=== PATIENT | female | born 1990 | race Two or more races ===

== ENCOUNTER → 2017-06-24 | Emergency (ER) | payer OTHER, MEDICAID ==
[~2017-06-24] MED LIST: IV NORMAL SALINE 1,000ML 1,000 ML IV ONE; NITR100C62 PO; POTASSIUM CHLORIDE 20 MEQ TABLET.ER. PO ONE
[2017-06-24 03:58] VITALS: BP 123/70
--- NOTE | 2017-06-24 04:09 | PHYS DOC ---
Past History Past Medical History: Asthma, Other Past Surgical History: Other Drug Use: Amphetamine, Cocaine Adult General Chief Complaint Chief Complaint: LOWER EXTREMITY [facility] HPI Patient is a 27 year old female who presents with multiple complaints. She states over the last 2 weeks she's been noticing weight gain, lightheadedness dizziness. She states is very similar to when she was before and was diagnosed with preeclampsia partially to weeks before she delivered. She states her symptoms started immediately upon and wasn' t fully diagnosed until she was term. She states she just came back from [place] where she did meth and other drugs. She states she usually doesn't do drugs unless she's "out partying". She denies any chest pain abdominal pain, vaginal bleeding. She states she just finished her period 5 days ago and is only 3 days in length. She states normally it is about 5 days or longer in length. She decided to come the emergency department because she had some cramps prior to arrival however she's not have any now. She denies any vaginal bleeding or discharge. Review of Systems Review of Systems Constitutional: Denies fever or chills [] Eyes: Denies change in visual acuity, redness, or eye pain [] HENT: Denies nasal congestion or sore throat [] Respiratory: Denies cough or shortness of breath [] Cardiovascular: No additional information not addressed in HPI [] GI: Denies abdominal pain, nausea, vomiting, bloody stools or diarrhea [] : Denies dysuria or hematuria [] Musculoskeletal: Denies back pain or joint pain [] Integument: Denies rash or skin lesions [] Neurologic: Denies headache, focal weakness or sensory changes [] Endocrine: Denies polyuria or polydipsia [] Physical Exam Physical Exam Constitutional: Well developed, well nourished, no acute distress, non-toxic appearance. [] HENT: Normocephalic, atraumatic, bilateral external ears normal, oropharynx moist, no oral exudates, nose normal. [] Eyes: PERRLA, EOMI, conjunctiva normal, no discharge. [] Neck: Normal range of motion, no tenderness, supple, no stridor. [] Cardiovascular:Heart rate regular rhythm, no murmur [] Lungs & Thorax: Bilateral breath sounds clear to auscultation [] Abdomen: Bowel sounds normal, soft, no tenderness, no masses, no pulsatile masses. [] Skin: Warm, dry, no erythema, no rash. [] Back: No tenderness, no CVA tenderness. [] Extremities: No tenderness, no cyanosis, no clubbing, ROM intact, no edema. [] Neurologic: Alert and oriented X 3, normal motor function, normal sensory function, no focal deficits noted. [] Psychologic: Affect normal, judgement normal, mood normal. [] Current Patient Data Vital Signs Vital Signs Date Time Temp Pulse Resp B/P (MAP) Pulse Ox O2 Delivery O2 Flow Rate FiO2 06/24/17 03:58 98.2 107 16 100 Room Air EKG EKG EKG shows sinus rhythm rate [address] elevations or T-wave inversions, normal axis, QTC 425 ms, as interpreted by me. Radiology/Procedures Radiology/Procedures [] Impressions: Hypokalemia Dehydration Bacteria in Meth amphetamine abuse Cocaine abuse Marijuana abuse Course & Med Decision Making Course & Med Decision Making Pertinent Labs and Imaging studies reviewed. (See chart for details) Patient presented with mild tachycardia she did have any tachypnea or hypoxemia. She did not have any vaginal bleeding or abdominal pain. She was ambulated around the department her heart rate did increase to 110 but her oxygen level stated 100% she was not tachypneic. She was found to be dehydrated and she was given a liter fluids her heart rate went down into the 80s. She also received 40 mg potassium chloride 1. She has bacteriuria and will be treated with nitrofurantoin for the next 7 days. She is to follow-up with Dr. Escalante within next few days. She is instructed to call his office today. She is also instructed to stop using methamphetamines, marijuana, cocaine and smoking. Patient was discharged in stable condition with her dad. Dragon Disclaimer Dragon Disclaimer This chart was dictated in whole or in part using Voice Recognition software in a busy, high-work load, and often noisy Emergency Department environment. It may contain unintended and wholly unrecognized errors or omissions. Departure Departure: Impression: Primary Impression: Dehydration Additional Impression: Disposition: HOME, SELF-CARE Condition: STABLE Referrals: PCP,NO (PCP) Patient Instructions: ABCs of Additional Instructions: You are and your potassium level was slightly low and your dehydrated. Her potassium and dehydration was corrected in the emergency department. You are being discharged home and to follow-up with [facility]. You're need to stop using cocaine and methamphetamines and any other illicit substance. Also please don't smoke during her . Your being discharged home with antibiotics for the next 10 days. Please take them as instructed. You will need to follow-up with Dr. Escalante. Please call [phone] Escalante 's office. Return ER if you have severe pain, vaginal bleeding, cramps or you have any other concerns. Scripts Nitrofurantoin Monohyd/M-Cryst (MACROBID 100 MG CAPSULE) 100 Mg Capsule 1 CAP PO BID, #14 CAP Prov: YONNY MUÑOZ MD 06/24/17 Problem Qualifiers Additional Impression: Weeks of gestation: unspecified Qualified Codes: Z34.90 - Encounter for supervision of normal , unspecified, unspecified trimester YONNY MUÑOZ MD Jun 24, 2017 04:08
[2017-06-24 04:34] LABS: BASO % 0 % (0-3); EOS # 0.3 x10^3/uL (0.0-0.7); EOS % 3 % (0-3); HEMATOCRIT 38.6 % (36.0-47.0); HEMOGLOBIN 13.4 g/dL (12.0-15.5); LYMPH # 2.7 x10^3/uL (1.0-4.8); LYMPH % 35 % (24-48); MEAN CORPUSCULAR HEMOGLOBIN 31 pg (25-35); MEAN CORPUSCULAR HGB CONC 35 g/dL (31-37); MEAN CORPUSCULAR VOLUME 90 fL (79-100); MONO # 0.6 x10^3/uL (0.0-1.1); MONO % 8 % (0-9); NEUT # 4.2 x10^3uL (1.8-7.7); NEUT % 54 % (31-73); PLATELET COUNT 241 x10^3/uL (140-400); RED BLOOD COUNT 4.27 x10^6/uL (3.50-5.40); RED CELL DISTRIBUTION WIDTH 13.9 % (11.5-14.5); WHITE BLOOD COUNT 7.8 x10^3/uL (4.0-11.0)
[2017-06-24 04:40] LABS: PREG TEST PT QUAL POSITIVE (NEG)
[2017-06-24 04:41] LABS: BILIRUBIN,URINE NEG (NEG); CLARITY,URINE HAZY; COLOR,URINE YELLOW; GLUCOSE,URINE NEG (NEG)
[2017-06-24 04:42] LABS: BACTERIA,URINE MOD /HPF (0-FEW); BARBITURATES NEG (NEG); BENZODIAZEPINES NEG (NEG); CANNABINOIDS POS (NEG); COCAINE POS (NEG); METHADONE NEG (NEG); NITRITE,URINE NEG (NEG); OPIATES NEG (NEG); PHENCYCLIDINE NEG (NEG); RBC,URINE 0 /HPF (0-2); SQUAMOUS EPITHELIAL CELL,UR MANY /LPF; UROBILINOGEN,URINE 0.2 mg/dL (0.2 mg/dL)
[2017-06-24 04:45] LABS: AMPHETAMINE/METHAMPHETAMINE POS (NEG)
[2017-06-24 04:50] LABS: ALBUMIN 3.6 g/dL (3.4-5.0); CALCIUM 8.8 mg/dL (8.5-10.1); CREATININE 0.7 mg/dL (0.6-1.0); DIRECT BILIRUBIN 0.1 mg/dL (0.0-0.2); POTASSIUM 3.3 mmol/L (3.5-5.1); TOTAL BILIRUBIN 0.3 mg/dL (0.2-1.0); TOTAL PROTEIN 7.1 g/dL (6.4-8.2)
--- NOTE | 2017-06-24 18:59 | EKG ---
[address] [address] Test Date: 2017-06-24 Test Time: 04:41:59 Pat Name: FRITZ ZAMORA Department: Room: Gender: F Regulatory Assistant: HORTENCIA : 1990 Requested By: YONNY MUÑOZ Order Number: [id number] Reading MD: Measurements Intervals [place] Rate: 96 P: 62 AK: 156 QRS: 69 QRSD: 86 T: 53 QT: 336 QTc: 425 Interpretive Statements SINUS RHYTHM INCOMPLETE RIGHT BUNDLE BRANCH BLOCK QRS(T) CONTOUR ABNORMALITY CONSIDER ANTEROSEPTAL MYOCARDIAL DAMAGE POSSIBLY ABNORMAL ECG RI6.01 No previous ECG available for comparison
== END ==
LOC: ER 03:48
DX: E86.0 Dehydration (principal); Z33.1 Pregnant state, incidental; E87.6 Hypokalemia; F14.10 Cocaine abuse, uncomplicated; F15.10 Other stimulant abuse, uncomplicated; J45.909 Unspecified asthma, uncomplicated; F12.10 Cannabis abuse, uncomplicated
CPT/HCPCS: 36415; 80048; 80076; 80307; 81001; 81025; 82553; 83880; 84703; 85025; 85610; 85730; 87086; 93005; 96360; 99285-25; G0479; J7030

== ENCOUNTER 2019-09-17 19:54 | Emergency (ER) | payer MEDICAID, OTHER ==
[~2019-09-17] VITALS: Ht 167.6 cm; Wt 81.1 kg
[~2019-09-17 19:54] MED LIST changes: -IV NORMAL SALINE 1,000ML 1,000 ML IV ONE; -POTASSIUM CHLORIDE 20 MEQ TABLET.ER. PO ONE
[2019-09-17 21:10] LABS: INFLUENZA A PATIENT NEGATIVE (NEGATIVE); INFLUENZA B PATIENT NEGATIVE (NEGATIVE)
--- NOTE | 2019-09-17 21:17 | PHYS DOC ---
Past History Past Medical History: Asthma, Other Past Surgical History: Other Alcohol Use: Rarely Drug Use: Amphetamine, Cocaine Adult General Chief Complaint Chief Complaint: FLU SYMPTOM HPI HPI 29-year-old female presents with cough, sore throat, fever. She's had fever up to 102. 2 people in her family have had influenza. She was treated with Tamiflu which she finished yesterday. Patient continues to have a fever today and her sore throat is worse. She is concerned about strep. She has no other complaints at this time. Review of Systems Review of Systems Constitutional: Fever[] Eyes: Denies change in visual acuity, redness, or eye pain [] HENT: Sore throat [] Respiratory: Cough without shortness of breath [] Cardiovascular: No additional information not addressed in HPI [] GI: Denies abdominal pain, nausea, vomiting, bloody stools or diarrhea [] : Denies dysuria or hematuria [] Musculoskeletal: Denies back pain or joint pain [] Integument: Denies rash or skin lesions [] Neurologic: Denies headache, focal weakness or sensory changes [] Endocrine: Denies polyuria or polydipsia [] All other systems were reviewed and found to be within normal limits, except as documented in this note. Allergies Allergies Allergies Coded Allergies Type Severity Reaction Last Updated Verified No Known Drug Allergies 06/24/17 No Physical Exam Physical Exam Constitutional: Well developed, well nourished, no acute distress, non-toxic appearance. [] HENT: Normocephalic, atraumatic, bilateral external ears normal, oropharynx erythematous with tonsillar exudates, nose normal. [] Eyes: PERRLA, EOMI, conjunctiva normal, no discharge. [] Neck: Normal range of motion, no tenderness, supple, no stridor. [] Cardiovascular:Heart rate regular rhythm, no murmur [] Lungs & Thorax: Bilateral breath sounds clear to auscultation [] Abdomen: Bowel sounds normal, soft, no tenderness, no masses, no pulsatile masses. [] Skin: Warm, dry, no erythema, no rash. [] Back: No tenderness, no CVA tenderness. [] Extremities: No tenderness, no cyanosis, no clubbing, ROM intact, no edema. [] Neurologic: Alert and oriented X 3, normal motor function, normal sensory function, no focal deficits noted. [] Psychologic: Affect normal, judgement normal, mood normal. [] Current Patient Data Vital Signs Vital Signs Date Time Temp Pulse Resp B/P (MAP) Pulse Ox O2 Delivery O2 Flow Rate FiO2 09/17/19 20:05 97.9 110 18 98 Room Air Lab Results Laboratory Tests Test 09/17/19 20:21 Influenza Type A (Rapid) Negative (NEGATIVE) Influenza Type B (Rapid) Negative (NEGATIVE) Group A Streptococcus Rapid Negative (NEGATIVE) EKG EKG [] Radiology/Procedures Radiology/Procedures [] Course & Med Decision Making Course & Med Decision Making Pertinent Labs and Imaging studies reviewed. (See chart for details) She is negative for influenza and strep. Based on her exam I'm still concerned for strep. I will go ahead and treat her for strep pharyngitis. She has elected for Bicillin injection. She is stable for discharge at this time. [] Dragon Disclaimer Dragon Disclaimer This electronic medical record was generated, in whole or in part, using a voice recognition dictation system. Departure Departure: Impression: Primary Impression: Strep pharyngitis Disposition: 01 HOME, SELF-CARE Condition: STABLE Referrals: PCP,NO (PCP) Patient Instructions: Strep Throat, [id number] EDGAR VALDEZ DO Sep 17, 2019 21:16
[2019-09-17] MEDS ORDERED: PENICILLIN G BENZATHINE LA 1,200,000 UNIT/2 ML DISP.SYRIN. IM ONE (21:30)
[2019-09-17 21:40] VITALS: BP 132/67
== END 2019-09-17 21:40 | disposition home or self-care (01) ==
LOC: ER 19:54
DX: J02.0 Streptococcal pharyngitis (principal); B95.0 Streptococcus, group A, as the cause of diseases classified elsewhere; J45.909 Unspecified asthma, uncomplicated
CPT/HCPCS: 87070; 87804; 87880; 96372; 99284; J0561

== ENCOUNTER 2020-02-22 17:09 | Emergency (ER) | payer BC ==
[~2020-02-22] VITALS: Ht 162.6 cm; Wt 82.6 kg
[2020-02-22] MEDS ORDERED: KETOROLAC 30 MG/ML VIAL. IV ONE (17:30)
[2020-02-22] MEDS ORDERED: ONDANSETRON PF 4 MG/2 ML VIAL. IV ONE (17:30)
[2020-02-22] MEDS ORDERED: IV NORMAL SALINE 1,000ML 1,000 ML IV ONE (17:30)
[2020-02-22 17:38] LABS: BILIRUBIN,URINE NEG (NEG); CLARITY,URINE CLOUDY; COLOR,URINE YELLOW; GLUCOSE,URINE NEG (NEG)
[2020-02-22 17:39] LABS: NITRITE,URINE NEG (NEG); UROBILINOGEN,URINE 0.2 mg/dL (0.2 mg/dL)
[2020-02-22 17:46] LABS: AMORPHOUS SEDIMENT,UR PRESENT /HPF; BACTERIA,URINE MOD /HPF (0-FEW); SQUAMOUS EPITHELIAL CELL,UR MOD /LPF
[2020-02-22 17:47] LABS: WBC,URINE >40 /HPF (0-4)
[2020-02-22] MEDS ORDERED: cefTRIAXone SODIUM 1 GM VIAL ONE (17:50)
[2020-02-22] MEDS ORDERED: IV NORMAL SALINE 50ML 50 ML ONE (17:50)
[2020-02-22] MEDS ORDERED: PHEN-318 PO (17:50)
[2020-02-22] MEDS ORDERED: SULF1TAB24 PO (17:50)
--- NOTE | 2020-02-22 17:50 | PHYS DOC ---
Past History Past Medical History: UTI Past Surgical History: Tonsillectomy Alcohol Use: Rarely Drug Use: Amphetamine, Cocaine General Adult EDM: Chief Complaint: FLANK PAIN HPI: HPI: Patient is a 29-year-old otherwise healthy female who presents with a 3-day history of lower abdominal discomfort and low back pain. She describes urinary frequency and urgency. She denies any gross hematuria. She denies any flank pain nausea or vomiting. She denies any dyspareunia vaginal bleeding or discharge. She has not had any high fever or sweats. [] Review of Systems: Review of Systems: Constitutional: Denies fever or chills Eyes: Denies change in visual acuity HENT: Denies nasal congestion or sore throat Respiratory: Denies cough or shortness of breath Cardiovascular: Denies chest pain or edema GI: Denies abdominal pain, nausea, vomiting, bloody stools or diarrhea : Per HPI Musculoskeletal: Denies back pain or joint pain Integument: Denies rash Neurologic: Denies headache, focal weakness or sensory changes Endocrine: Denies polyuria or polydipsia Lymphatic: Denies swollen glands Psychiatric: Denies depression or anxiety Heart Score: Risk Factors: Risk Factors: DM, Current or recent (<one month) smoker, HTN, HLP, family history of CAD, obesity. Risk Scores: Score 0 - 3: 2.5% MACE over next 6 weeks - Discharge Home Score 4 - 6: 20.3% MACE over next 6 weeks - Admit for Clinical Observation Score 7 - 10: 72.7% MACE over next 6 weeks - Early Invasive Strategies Current Medications: Current Meds: Current Medications Medications (Trade) Dose Ordered [facility] Start Time Stop Time Status Last Admin Dose Admin Ketorolac Tromethamine (Toradol 30mg Vial) 30 mg 1X ONCE 02/22/20 17:30 02/22/20 17:31 DC 02/22/20 17:43 30 MG Ondansetron HCl (Zofran) 4 mg 1X ONCE 02/22/20 17:30 02/22/20 17:31 DC 02/22/20 17:43 4 MG Sodium Chloride 1,000 ml @ 1,000 mls/hr 1X ONCE 02/22/20 17:30 02/22/20 18:29 02/22/20 17:42 1,000 MLS/HR Allergies: Allergies: Allergies Coded Allergies Type Severity Reaction Last Updated Verified No Known Drug Allergies 06/24/17 No Physical Exam: PE: Constitutional: Well developed, well nourished, no acute distress, non-toxic appearance. [] HENT: Normocephalic, atraumatic, bilateral external ears normal, oropharynx moist, no oral exudates, nose normal. [] Eyes: PERRLA, EOMI, conjunctiva normal, no discharge. [] Neck: Normal range of motion, no tenderness, supple, no stridor. [] Cardiovascular:Heart rate regular rhythm, no murmur [] Lungs & Thorax: Bilateral breath sounds clear to auscultation [] Abdomen: Bowel sounds normal, soft, no tenderness, no masses, no pulsatile masses. [] Skin: Warm, dry, no erythema, no rash. [] Back: No tenderness, no CVA tenderness. [] Extremities: No tenderness, no cyanosis, no clubbing, ROM intact, no edema. [] Neurologic: Alert and oriented X 3, normal motor function, normal sensory function, no focal deficits noted. [] Psychologic: Affect normal, judgement normal, mood normal. [] Current Patient Data: Labs: Laboratory Tests Test 02/22/20 17:32 POC Urine HCG, Qualitative hcg negative (Negative) Vital Signs: Vital Signs Date Time Temp Pulse Resp B/P (MAP) Pulse Ox O2 Delivery O2 Flow Rate FiO2 02/22/20 17:10 97.9 90 18 129/81 (97) 99 Room Air EKG: EKG: [] Radiology/Procedures: Radiology/Procedures: [] Course & Med Decision Making: Course & Med Decision Making Pertinent Labs and Imaging studies reviewed. (See chart for details) [ED course: Evaluation reveals a 29-year-old female with lower abdominal and back pain associated with some dysuria. She was given IV fluids and IV Rocephin. She felt much better after this treatment.] Dragon Disclaimer: Richard Disclaimer: This electronic medical record was generated, in whole or in part, using a voice recognition dictation system. Departure Departure: Impression: Primary Impression: Urinary tract infection Qualified Codes: N30.00 - Acute cystitis without hematuria Disposition: HOME/RESIDENCE PRIOR TO ADM Condition: STABLE Referrals: PCP,NO (PCP) Patient Instructions: Urinary Tract Infection Additional Instructions: Drink plenty of fluids every day. Return to the emergency department with any new or concerning symptoms Scripts Phenazopyridine Hcl (PYRIDIUM) 200 Mg Tablet 200 MG PO Q8HRS for urinary tract infection, #10 TAB Prov: VERNELL PALOMARES DO 02/22/20 Sulfamethoxazole/Trimethoprim (BACTRIM DS TABLET) 1 Each Tablet 1 TAB PO BID for URINARY TRACT INFECTION for 5 Days, #10 TAB 0 Refills Prov: VERNELL PALOMARES DO 02/22/20 VERNELL PALOMARES DO Feb 22, 2020 17:50
[2020-02-22 18:02] LABS: BASO % 1 % (0-3); EOS # 0.2 x10^3/uL (0.0-0.7); EOS % 3 % (0-3); HEMATOCRIT 40.8 % (36.0-47.0); HEMOGLOBIN 13.8 g/dL (12.0-15.5); LYMPH # 2.4 x10^3/uL (1.0-4.8); LYMPH % 40 % (24-48); MEAN CORPUSCULAR HEMOGLOBIN 31 pg (25-35); MEAN CORPUSCULAR HGB CONC 34 g/dL (31-37); MEAN CORPUSCULAR VOLUME 92 fL (79-100); MONO # 0.5 x10^3/uL (0.0-1.1); MONO % 8 % (0-9); NEUT # 2.9 x10^3uL (1.8-7.7); NEUT % 48 % (31-73); PLATELET COUNT 183 x10^3/uL (140-400); RED BLOOD COUNT 4.43 x10^6/uL (3.50-5.40); RED CELL DISTRIBUTION WIDTH 13.5 % (11.5-14.5)
[2020-02-22 18:09] LABS: CREATININE 0.8 mg/dL (0.6-1.0); POTASSIUM 4.2 mmol/L (3.5-5.1)
[2020-02-22 18:10] VITALS: BP 116/70
[2020-02-22 18:15] LABS: ALBUMIN 3.7 g/dL (3.4-5.0); ALBUMIN/GLOBULIN RATIO 1.1 (1.0-1.7); TOTAL BILIRUBIN 0.4 mg/dL (0.2-1.0)
== END 2020-02-22 18:19 | disposition home or self-care (01) ==
LOC: ER 17:09
DX: N30.00 Acute cystitis without hematuria (principal); Z87.442 Personal history of urinary calculi
CPT/HCPCS: 36415; 80053; 81001; 81025; 85025; 87086; 96365; 96375; 99284; J0696; J1885; J2405; J7030